=== PATIENT | male | born 1945 | race Caucasian/White ===

== ENCOUNTER 2025-05-29 18:20 | Emergency (ER) | payer MEDICARE, BC, SELFPAY ==
[2025-05-29] VITALS (26 sets, daily range): BP systolic 118–182; BP diastolic 56–87; PULSE 80–104; TEMP 37; O2SAT 93–100; BMI 17.2
--- OUTSIDE RECORDS SUMMARY | 2025-05-29 18:26 | XMS_ITS | Clinical Summary ---
Author Organization [facility] Address [address] [place] [address] Care Team Providers Care [employer] Director Name Role Phone Preston Horn DO Primary Care Provider [phone] Social History Tobacco Use Types Packs/Day Years Used Date Smoking Tobacco: Never Assessed Sex and Gender Information Value Date Recorded Sex Assigned at Not on file Legal Sex Male 1:10 PM EDT Gender Identity Not on file Sexual Orientation Not on file Plan of Treatment Not on file Insurance MEDICARE Care Teams Middle [employer] Director Relationship Specialty Start Date End Date Preston Horn DO PCP - General Internal Medicine 09/12/15
--- OUTSIDE RECORDS SUMMARY | 2025-05-29 18:26 | XMS_ITS | Clinical Summary ---
Author Organization [facility] Address [address] 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
--- NOTE | 2025-05-29 18:46 | ECG_ITS ---
The [facility] Test Date: 2025-05-29 Pat Name: LACEY LANG Department: Room: - Gender: Male Food And Beverage Manager: : 1945 Requested By: [id number] Order Number: [id number] Reading MD: CLINT TODD Measurements Intervals Bath Rate: 89 P: 71 MT: 146 QRS: 55 QRSD: 114 T: 58 QT: 394 QTc: 440 Interpretive Statements 1100 Sinus rhythm INCOMPLETE LEFT BUNDLE BRANCH BLOCK 9150 abnormal ECG Compared to ECG 11/28/2019 14:28:01 Left bundle-branch block no longer present Electronically Signed On 06-04-2025 12:46:37 EDT by CLINT TODD
--- NOTE | 2025-05-29 18:46 | XR_ITS ---
The [address] [address] Patient Name: LACEY LANG MRN: [id number] date: 1945 Sex: M Assigned Patient Location: ED.MAIN Current Patient Location: ED.MAIN Accession/Order Number: [id number] Exam Date: 05/29/2025 20:16 Report Date: 05/29/2025 20:20 At the request of: SHARON HODGES MD Procedure: XR chest 1V Single frontal view chest CLINICAL HISTORY: Weakness COMPARISON: 11/28/2019 Unremarkable cardiomediastinal silhouette. Aortic knob calcification. Multifocal parenchymal opacity likely due to calcified pleural plaques. The left upper lung parenchymal opacity and fibrosis better seen on CT thoracic spine. Otherwise no definite acute pleural or parenchymal disease or pneumothorax. Chest wall pacemaker/ICD device identified. XR/XR chest 1V IMPRESSION: Emphysematous changes changes with extensive pleural plaques noted. No definite acute airspace disease left upper lung abnormality better seen on Comparison CT thoracic spine. Recommend outpatient CT chest to further characterization Impression dictated by: Rogerio Brothers M.D. 05/29/2025 8:20 PM Dictation Location: [facility] [employer] Electronically authenticated by: [id number] Y Date: 05/29/2025 20:20
--- NOTE | 2025-05-29 18:46 | CT_ITS ---
The [address] [address] Patient Name: LACEY LANG MRN: [id number] date: 1945 Sex: M Assigned Patient Location: ED.MAIN Current Patient Location: ED.MAIN Accession/Order Number: [id number] Exam Date: 05/29/2025 19:17 Report Date: 05/29/2025 19:21 At the request of: SHARON HODGES MD Procedure: CT head/brain wo con CT BRAIN WITHOUT CONTRAST: CLINICAL HISTORY: Fall COMPARISON: 11/28/2019 TECHNIQUE: Contiguous axial unenhanced images were obtained through the brain. This CT exam was performed using one or more following dose reduction techniques: Automated exposure control, adjustment of the mA and/or kV according to patient size, or use of iterative reconstruction technique. FINDINGS: There is no evidence of midline shift, intra or extra-axial fluid collection, hemorrhage or CT evidence of acute large vascular distribution stroke. Central involutional change. Moderate burden of periventricular subcortical hypoattenuation suggestive of chronic small vessel ischemic disease. Suspected remote lacunar strokes both basal ganglia regions unremarkable involving anterior limbs of the internal capsules left greater than right. Intracranial vascular calcifications. Cataract surgery. Oetg-ig-sehzcojx sinus disease. Small air-fluid right sphenoid sinus. Moderate left maxillary sinus disease. Soft tissues swelling left frontal region. No calvarial fracture. CT/CT head/brain wo con IMPRESSION: NO ACUTE INTRACRANIAL ABNORMALITY. CHRONIC SMALL VESSEL ISCHEMIC CHANGES Impression dictated by: Rogerio Brothers M.D. 05/29/2025 7:21 PM Dictation Location: [place] [address] Electronically authenticated by: [id number] Y Date: 05/29/2025 19:21
--- NOTE | 2025-05-29 18:46 | CT_ITS ---
The [address] [address] Patient Name: LACEY LANG MRN: [id number] date: 1945 Sex: M Assigned Patient Location: ED.MAIN Current Patient Location: ED.MAIN Accession/Order Number: [id number] Exam Date: 05/29/2025 20:03 Report Date: 05/29/2025 20:09 At the request of: SHARON HODGES MD Procedure: CT cervical spine wo con CT CERVICAL SPINE WITHOUT CONTRAST: CLINICAL HISTORY: Fall COMPARISON: 11/28/2019 TECHNIQUE: Contiguous axial unenhanced images were obtained through the cervical spine. This CT exam was performed using one or more following dose reduction techniques: Automated exposure control, adjustment of the mA and/or kV according to patient size, or use of iterative reconstruction technique. Focal parenchymal opacity left upper lobe possibly or fibrosis or nodularity identified 1.8 cm size. Emphysematous change. Mild levocurvature. Moderate severe intervertebral space narrowing C4-C6. Mild anterior vertebral space narrowing elsewhere. Multilevel endplate osteophytosis and facet arthropathy. No evidence of acute fracture or malalignment. No prevertebral soft tissue swelling. Carotid vascular disease. CT/CT cervical spine wo con IMPRESSION: Multilevel degenerative change. No evidence acute fracture or malalignment. Left upper lung parenchymal opacity possible area of fibrosis and or nodularity 1.8 [address] in size. Recommend CT chest imaging outpatient basis for further characterization. Based ON 2018 CT chest report this may have been present prior examination. Images were not available at time of dictation. Impression dictated by: Rogerio Brothers M.D. 05/29/2025 8:09 PM Dictation Location: [place] [address] Electronically authenticated by: [id number] Y Date: 05/29/2025 20:09
--- NOTE | 2025-05-29 18:46 | XR_ITS ---
The [address] [address] Patient Name: LACEY LANG MRN: [id number] date: 1945 Sex: M Assigned Patient Location: ED.MAIN Current Patient Location: ED.MAIN Accession/Order Number: [id number] Exam Date: 05/29/2025 20:20 Report Date: 05/29/2025 20:22 At the request of: SHARON HODGES MD Procedure: XR hip RT 2V w/ pelvis Single view pelvis and 2 views right hip INDICATION: Fall FINDINGS: Diffuse osteopenia. No definite acute displaced pelvic fracture left hip fracture. There is abnormal angulation right hip. Questionable lucency about trochanteric region unclear if this is due to summation artifact. XR/XR hip RT 2V w/ pelvis IMPRESSION: Abnormal angulation right hip not well evaluated. Questionable lucency trochanteric region. Impression dictated by: Rogerio Brothers M.D. 05/29/2025 8:22 PM Dictation Location: [place] [address] Electronically authenticated by: [id number] Y Date: 05/29/2025 20:22
--- NOTE | 2025-05-29 18:46 | CT_ITS ---
The [address] [address] Patient Name: LACEY LANG MRN: [id number] date: 1945 Sex: M Assigned Patient Location: ED.MAIN Current Patient Location: ED.MAIN Accession/Order Number: [id number] Exam Date: 05/29/2025 20:09 Report Date: 05/29/2025 20:13 At the request of: SHARON HODGES MD Procedure: CT thoracic spine wo con CT CERVICAL SPINE WITHOUT CONTRAST: CLINICAL HISTORY: Fall COMPARISON: None TECHNIQUE: Contiguous axial unenhanced images were obtained through the thoracic spine. This CT exam was performed using one or more following dose reduction techniques: Automated exposure control, adjustment of the mA and/or kV according to patient size, or use of iterative reconstruction technique. FINDINGS: Emphysematous changes within lungs. There are calcified pleural plaque identified within the lungs. Emphysematous change. Ill-defined scarring and parenchymal opacity left upper lobe with associated areas of fibrosis noted. Oqee-ko-duacpxal degenerative change. No evidence acute fracture or malalignment. Left chest wall pacemaker device. CT/CT thoracic spine wo con IMPRESSION: MULTILEVEL DEGENERATIVE CHANGE. NEGATIVE ACUTE FRACTURE MALALIGNMENT. EMPHYSEMATOUS CHANGES WITH LEFT UPPER LUNG ABNORMALITY IDENTIFIED. THIS CAN BE FOLLOWED UP WITH OUTPATIENT CT CHEST WHEN CLINICALLY FEASIBLE. Impression dictated by: Rogerio Brothers M.D. 05/29/2025 8:13 PM Dictation Location: [place] [address] Electronically authenticated by: [id number] Y Date: 05/29/2025 20:13
--- NOTE | 2025-05-29 18:46 | CT_ITS ---
The [address] [address] Patient Name: LACEY LANG MRN: [id number] date: 1945 Sex: M Assigned Patient Location: ED.MAIN Current Patient Location: ED.MAIN Accession/Order Number: [id number] Exam Date: 05/29/2025 20:13 Report Date: 05/29/2025 20:16 At the request of: SHARON HODGES MD Procedure: CT lumbar spine wo con CT LUMBAR SPINE WITHOUT CONTRAST: CLINICAL HISTORY: Fall COMPARISON: None TECHNIQUE: Contiguous axial unenhanced images were obtained through the lumbar spine. This CT exam was performed using one or more following dose reduction techniques: Automated exposure control, adjustment of the mA and/or kV according to patient size, or use of iterative reconstruction technique. FINDINGS: Postsurgical changes L4-S1 posterior fusion, discectomy and laminectomy. No fracture malalignment. Multilevel degenerative changes lumbar spine with multilevel facet arthropathy overall moderate. Junction degenerative changes L3-4 with moderate neural from narrowing identified. Fusiform aortic aneurysm 4 cm in greatest dimension. CT/CT lumbar spine wo con IMPRESSION: Negative acute fracture malalignment. Postsurgical changes lumbosacral junction. Abdominal aortic aneurysm 4 cm in greatest axial dimension. Impression dictated by: Rogerio Brothers M.D. 05/29/2025 8:16 PM Dictation Location: [place] [address] Electronically authenticated by: [id number] Y Date: 05/29/2025 20:16
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
[2025-05-29 19:44] LABS: Hematocrit 37.0 % (42.0-54.0); Hemoglobin 12.2 g/dL (14.0-18.0); Immature Granulocytes Abs Auto 0.05 10^3/uL (0.00-0.03); Immature Granulocytes Pct Auto 0.4 % (0.0-0.5); Lymphocytes Absolute Auto 1.1 10^3/uL (1.2-3.8); Mean Corpuscular HGB Conc 33.0 g/dL (29.9-35.2); Mean Corpuscular Hemoglobin 31.9 pg (25.9-34.0); Mean Corpuscular Volume 96.6 fL (80.0-94.0); Platelet Count 197 10^3/uL (150-450); Red Blood Count 3.83 10^6/uL (4.70-6.10); White Blood Count 11.5 10^3/uL (4.0-11.0)
[2025-05-29 20:17] LABS: Anion Gap 12.5; Blood Urea Nitrogen 25.0 mg/dL (7.0-18.0); Calcium 8.9 mg/dL (8.5-10.1); Carbon Dioxide 30.1 mmol/L (21.0-32.0); Chloride 105 mmol/L (98-107); Estimated GFR (African America >60 (>=60 mL/min/1.73m^2); Estimated GFR (Non-African Ame 55 (>=60 mL/min/1.73m^2); Glucose 126 mg/dL (74-106); Potassium 4.6 mmol/L (3.5-5.1); Sodium 143 mmol/L (136-145)
[2025-05-29] MEDS: 0.9 % SODIUM CHLORIDE 1,000 ML 100 ML IV (20:21)
[2025-05-29 20:31] LABS: Creatine Kinase 915 U/L (39-308)
--- NOTE | 2025-05-29 20:55 | CT_ITS ---
The [address] [address] Patient Name: LACEY LANG MRN: [id number] date: 1945 Sex: M Assigned Patient Location: ER Current Patient Location: ER Accession/Order Number: [id number] Exam Date: 05/29/2025 21:42 Report Date: 05/29/2025 21:49 At the request of: GERALDINE GALLEGOS MD Procedure: CT hip RT wo con CT RIGHT HIP WITHOUT CONTRAST: CLINICAL HISTORY: Fall COMPARISON: None TECHNIQUE: Contiguous axial unenhanced images were obtained through the right hip. This CT exam was performed using one or more following dose reduction techniques: Automated exposure control, adjustment of the mA and/or kV according to patient size, or use of iterative reconstruction technique. FINDINGS: Osteopenia. Minimally comminuted fracture through the greater trochanter with impaction. There is a linear nondisplaced fracture extending through the intertrochanteric region, as is as on image 71, series 7. Otherwise degenerative changes. No diastases of the pubic symphysis or the sacroiliac joint. Overlying soft tissue swelling. CT/CT hip RT wo con IMPRESSION: Nondisplaced intertrochanteric fracture with mildly comminuted greater trochanteric component. Impression dictated by: Rogerio Brothers M.D. 05/29/2025 9:49 PM Dictation Location: [place] [address] Electronically authenticated by: [id number] Y Date: 05/29/2025 21:49
== END 2025-05-30 01:11 | disposition short-term general hospital (02) ==
PROVIDERS: Emergency Medicine; Emergency Provider Internal Medicine; PCP Internal Medicine
DX: S72.144A Nondisplaced intertrochanteric fracture of right femur, initial encounter for closed fracture (principal); S72.111A Displaced fracture of greater trochanter of right femur, initial encounter for closed fracture; W05.1XXA Fall from non-moving nonmotorized scooter, initial encounter; M62.82 Rhabdomyolysis; J01.90 Acute sinusitis, unspecified
CPT/HCPCS: 36415; 70450; 71045; 72125; 72128; 72131; 73502; 73700; 80048; 81001; 82550; 83874; 84484; 85025; 93005; 99285